=== PATIENT | female | born 1980 | race Caucasian/White ===

== ENCOUNTER → 2016-08-26 | Outpatient (CLI) | payer OTHER ==
[2016-08-27 16:09] LABS: LYME AB SCREEN Negative (Negative)
== END ==
LOC: LAB 10:26
PROVIDERS: ATTEND Family Medicine
DX: D51.0 Vitamin B12 deficiency anemia due to intrinsic factor deficiency (principal); R53.83 Other fatigue
CPT/HCPCS: 36415; 86618

== ENCOUNTER → 2016-09-01 | Outpatient (CLI) | payer OTHER ==
--- NOTE | 2016-09-01 10:39 | DI ---
US PELVIC COMPLETE (NON OB),09/01/2016 8:17 AM: Clinical History: Pelvic pain Previous Exam: August 22, 2014 Findings: Multiple transabdominal grayscale and color Doppler sonographic images are obtained through the pelvi s demonstrating a normal-appearing uterus measuring 8.6 x 3.9 x 4.9 cm with an endometrial stripe kaushal suring 2 mm. The ovaries are within normal limits with preserved Doppler flow. The right ovary measured 4.0 x 2.1 x 2.5 cm and the left ovary measured 1.5 x 1.6 x 1.8 cm. Transvaginal images are also obtained. These are limited. Impression: Normal pelvic ultrasound.
--- NOTE | 2016-09-01 10:52 | DI ---
US PELVIC-TRANSVAGINAL,09/01/2016 8:17 AM: Clinical History: Pelvic pain Previous Exam: CT abdomen pelvis performed April 09, 2016. Findings: Multiple transabdominal and endovaginal grayscale and color Doppler sonographic images are obtained t hrough the pelvis demonstrating a normal-appearing uterus measuring 7.8 x 5.7 x 4.0 cm with an endome trial stripe measuring 3 mm. The right ovary measured 4.0 x 2.5 x 2.1 cm with normal arterial and venous Doppler waveforms. The left ovary measured 2.0 x 1.8 x 1.1 cm also with normal venous and arterial Doppler waveforms. Th ere is no free fluid. Evaluation of the palpable area reveals no visible abnormality. Impression: Normal pelvic ultrasound.
== END ==
LOC: US 08:10
PROVIDERS: ATTEND Obstetrics & Gynecology
DX: R10.2 Pelvic and perineal pain (principal); R10.84 Generalized abdominal pain
CPT/HCPCS: 76830; 76856

== ENCOUNTER → 2016-10-29 | Outpatient (CLI) | payer OTHER ==
[2016-10-29 13:04] LABS: FREE T4 (FREE THYROXINE) 0.76 ng/dL (0.93-1.71)
== END ==
LOC: MOB LAB 10:59
PROVIDERS: ATTEND Family Medicine
DX: L65.8 Other specified nonscarring hair loss (principal)
CPT/HCPCS: 36415; 84439; 84443

== ENCOUNTER → 2016-12-03 | Outpatient (CLI) | payer OTHER ==
[2016-12-03 17:10] LABS: FREE T4 (FREE THYROXINE) 0.69 ng/dL (0.93-1.71)
[2016-12-05 13:50] LABS: THYROGLOBULIN AB <1.8 IU/mL (<4.0); THYROID PEROXIDASE AB 0.5 IU/mL (<9.0)
== END ==
LOC: MOB LAB 14:53
PROVIDERS: ATTEND Family Medicine
DX: R94.6 Abnormal results of thyroid function studies (principal)
CPT/HCPCS: 36415; 84439; 84443; 86376; 86800

== ENCOUNTER → 2017-01-15 | Outpatient (CLI) | payer OTHER ==
[2017-01-15 13:41] LABS: FREE T4 (FREE THYROXINE) 1.02 ng/dL (0.93-1.71)
== END ==
LOC: LAB 12:38
PROVIDERS: ATTEND Family Medicine
DX: E03.9 Hypothyroidism, unspecified (principal)
CPT/HCPCS: 36415; 84439; 84443